=== PATIENT | female | born 2000 | race Caucasian/White ===

== ENCOUNTER → 2025-05-27 | Outpatient (CLI) | payer BC, SELFPAY ==
[2025-05-27 15:21] LABS: Glucose,1 Hour PP 50gm Dose 151 mg/dL (80-140)
== END | disposition home or self-care (01) ==
LOC: SLDO 14:29
PROVIDERS: Referring Provider Physician Assistant Medical; Visit Provider Physician Assistant Medical
DX: Z34.82 Encounter for supervision of other normal pregnancy, second trimester (principal)
CPT/HCPCS: 36415; 82950

== ENCOUNTER → 2025-06-04 | Outpatient (CLI) | payer BC, SELFPAY ==
[2025-06-04 09:36] LABS: Glucose,Fasting Gestational 78 mg/dL (70-120)
[2025-06-04 11:04] LABS: Glucose 1 Hour, Gest 134 mg/dL (50-190)
[2025-06-04 11:40] LABS: Glucose 2 Hour,Gest 142 mg/dL (50-165)
[2025-06-04 12:11] LABS: Glucose 3 Hour, Gest 136 mg/dL (50-145)
== END | disposition home or self-care (01) ==
LOC: COPL 08:19
PROVIDERS: Referring Provider Physician Assistant Medical; Visit Provider Physician Assistant Medical
DX: O99.810 Abnormal glucose complicating pregnancy (principal)
CPT/HCPCS: 36415; 82951; 82952

== ENCOUNTER → 2025-06-27 | Outpatient (CLI) | payer BC, SELFPAY ==
[2025-06-27 16:30] LABS: Basophils # (Auto) 0.0 Thou/mm3 (0.0-0.2); Basophils % (Auto) 0 % (0-2.5); Eosinophils # (Auto) 0.2 Thou/mm3 (0.0-0.5); Eosinophils % (Auto) 2 % (0-10); Hematocrit 36.2 % (36.0-46.0); Hemoglobin 10.8 g/dL (12.0-16.0); Immature Granulocytes Auto 0.15 Thou/mm3 (0.00-0.00); Lymphocytes # (Auto) 2.1 Thou/mm3 (1.0-4.8); Lymphocytes % (Auto) 20 % (10-50); Mean Corpuscular HGB Conc 29.8 g/dl (31.0-37.0); Mean Corpuscular Hemoglobin 29.8 pg (25.0-35.0); Mean Corpuscular Volume 100 fL (80-100); Monocytes # (Auto) 0.6 Thou/mm3 (0.0-0.8); Monocytes % (Auto) 6 % (0-12); Neutrophils # (Auto) 7.3 Thou/mm3 (1.8-7.7); Neutrophils % (Auto) 71 % (37-80); Nucleated Red Blood Cell # 0.00 Thou/mm3 (0.00-0.00); Nucleated Red Blood Cell % 0 /100 WBC (0); Platelet Count 187 Thou/mm3 (140-440); RDW Standard Deviation 50.8 fL (36.4-46.3); Red Blood Count 3.63 Miln/mm3 (4.00-5.20); White Blood Count 10.4 Thou/mm3 (3.6-11.0)
[2025-06-27 17:33] LABS: Syphilis Nonreactive (Nonreactive)
== END | disposition home or self-care (01) ==
LOC: SLDO 14:45
PROVIDERS: PCP Specialist; Referring Provider Specialist; Visit Provider Specialist
DX: Z34.83 Encounter for supervision of other normal pregnancy, third trimester (principal)
CPT/HCPCS: 36415; 85025; 86780

== ENCOUNTER 2025-08-11 10:08 | Inpatient (IN) | payer BC, SELFPAY ==
[2025-08-11] VITALS (14 sets, daily range): BP systolic 98–131; BP diastolic 53–86; PULSE 66–99; RESP 12–100; TEMP 36.4–36.7; O2SAT 96–100; BMI 35.4
--- NOTE | 2025-08-11 11:00 | PD.LDHP ---
Documentation for date of: 08/11/25 OB Labor/Induct. HPI History of Present Illness History of present illness: H and P dictated on the STAT line in [employer] #9: [id number] Meds Home Medications and Allergies Home Medications ?Medication ?Instructions ?Recorded ?Confirmed ?Type No Known Home Medications 10/28/21 10/28/21 History Allergies Allergy/AdvReac Type Severity Reaction Status Date / Time animal dander Allergy Verified 05/27/20 18:56 OB Exam Physical Exam Vital signs: Temp Pulse Resp BP 98.1 F 71 16 119/74 08/11/25 10:16 08/11/25 10:26 08/11/25 10:16 08/11/25 10:26
[2025-08-11 11:06] LABS: Basophils # (Auto) 0.0 Thou/mm3 (0.0-0.2); Basophils % (Auto) 0 % (0-2.5); Eosinophils # (Auto) 0.1 Thou/mm3 (0.0-0.5); Eosinophils % (Auto) 1 % (0-10); Hematocrit 36.9 % (36.0-46.0); Hemoglobin 12.6 g/dL (12.0-16.0); Immature Granulocytes Auto 0.09 Thou/mm3 (0.00-0.00); Lymphocytes # (Auto) 2.2 Thou/mm3 (1.0-4.8); Lymphocytes % (Auto) 17 % (10-50); Mean Corpuscular HGB Conc 34.1 g/dl (31.0-37.0); Mean Corpuscular Hemoglobin 29.9 pg (25.0-35.0); Mean Corpuscular Volume 88 fL (80-100); Monocytes # (Auto) 0.6 Thou/mm3 (0.0-0.8); Monocytes % (Auto) 5 % (0-12); Neutrophils # (Auto) 9.5 Thou/mm3 (1.8-7.7); Neutrophils % (Auto) 76 % (37-80); Nucleated Red Blood Cell # 0.00 Thou/mm3 (0.00-0.00); Nucleated Red Blood Cell % 0 /100 WBC (0); Platelet Count 211 Thou/mm3 (140-440); RDW Standard Deviation 41.5 fL (36.4-46.3); Red Blood Count 4.21 Miln/mm3 (4.00-5.20); White Blood Count 12.5 Thou/mm3 (3.6-11.0)
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
[2025-08-11] MEDS: RINGERS LACTATED 1000 ML 1,000 ML 125 ML IV ×2 (11:38→11:58)
[2025-08-11] MEDS: CITRIC ACID/SODIUM CITR 15 ML UDC (BICITRA) 30 ML PO ×2 (11:56→11:57)
[2025-08-11] MEDS: ceFAZolin/D5W 2 GM IV 2 GM/100 ML BAG IV (11:57)
--- NOTE | 2025-08-11 12:05 | PD.LDDS ---
DS: Providers Provider Date of admission: 08/11/25 10:08 Primary care physician: Physician No Primary/Family Admitting Provider: Darin Dodd MD Attending Provider on Admission: Darin Dodd MD Attending Provider on DC: Darin Dodd MD Discharging Provider: Darin Dodd MD DS: Diagnosis Problem List Completed Was Problem List Reviewed/Reconciled?: Yes Summary/Hosp Course Brief History: H and P dictated on the STAT line in [facility] #9: [id number] Peripartum Data Delivery Method: Low Transverse Procedures: Procedures Operation Date: 08/11/25 12:15 <No data on this case meets the specified criteria> Time Spent with Patient Time attestation: Total time spent providing and/or coordinating discharge services: Exam Vital Signs Temp Pulse Resp BP 98.1 F 71 16 119/74 08/11/25 10:16 08/11/25 10:26 08/11/25 10:16 08/11/25 10:26 Discharge Plan Plan Patient Disposition: HOME (Self Care) Patient condition on transfer: Stable Prescriptions/Referrals Prescriptions/Med Rec: New hydrocodone-acetaminophen 5-325 mg tablet 1 tab PO Q6H MDD 4 PRN (Reason: pain) Qty: 20 0RF ibuprofen 600 mg tablet 600 mg PO Q6H PRN (Reason: pain) Qty: 30 0RF Continued Classic 28 mg iron- 800 mcg tablet 800 tab PO QDAY Patient Comments: TAKE 1 TABLET BY MOUTH EVERY DAY Referrals: No Primary/Family,Physician [Primary Care Provider] Patient/Caregiver Discharge Instructions Discharge Activity: activity as tolerated Other Discharge Activity Instructions:: Follow up office 1 week. Education Materials: C Section Dc Print Language: Azeri Stand Alone Forms: Debby Award Info., Patient Portal Info Letter, Work/Release Restrictions Planned Discharge Date 08/13/25
--- NOTE | 2025-08-11 12:11 | ESOP_ITS ---
Operative Note - DIRECTOR OF FLIGHT OPERATIONS Procedure Date of procedure: 08/11/25 Procedure Performed: Repeat low-transverse section via Pfannenstiel skin incision Indication: Intrauterine at 37 weeks and 0 days Previous delivery Elects repeat delivery Early labor Pre-Op diagnosis: Intrauterine at 37 weeks and 0 days Previous delivery Elects repeat delivery Early labor Post-Op diagnosis: Intrauterine at 37 weeks and 0 days Previous delivery Elects repeat delivery Early labor Endometriosis Anesthesia type: Spinal Procedure description: After proper informed consent was obtained and the patient was made aware of the risks, complications, alternatives and benefits of the proposed procedure she was taken to the operating room where she underwent induction of spinal anesthesia. She was prepped and draped in the usual sterile fashion. A timeout was performed.? A Pfannenstiel skin incision was made with the scalpel and carried through to the underlying layer of fascia with the Bovie. The fascia was nicked in the midline incision and the incision was extended bilaterally with the Bovie. The inferior aspect of the fascial incision was grasped with Oralia clamps elevated and the underlying rectus muscle dissected off with the Bovie. The superior aspect the fascial incision was grasped with Oralia clamps elevated and the underlying rectus muscle dissected off with the Bovie. The rectus muscles were in the midline. The peritoneum was grasped between 2 Cole clamps and entered sharply with the Metzenbaum scissors. The peritoneum was extended superiorly and inferiorly with good visualization of the bladder. The vesicouterine peritoneum was incised transversely and the bladder flap created digitally. A Jaky blade was inserted. A low transverse incision was made in the uterus with a scapel and the incision was extended digitally. The infant's head delivered and the mouth and nose were suctioned with the bulb suction. The shoulder and body delivered atraumatically. The cord was clamped after 30 second delayed cord clamping and the cord was cut.? The male infant was handed off to the waiting Pediatric staff, cord blood was collected for lab testing. The placenta was removed complete and intact. The uterus was exteriorized and cleared of all clots and debris. The uterine incision was closed with #1-0 chromic catgut suture in a running interlocking fashion. A second layer of the same suture was used to imbricate the first layer and obtain excellent hemostasis. The vesicouterine peritoneum was closed with 2-0 chromic catgut suture in a running fashion. The firm uterus was returned to the abdomen. The gutters were cleared of all clots and debris. The peritoneum was closed with 0 chromic catgut suture in running fashion. The rectus muscle was closed with 0 chromic catgut suture. The fascia was closed with 0 Vicryl beginning at each angle and ending in the center in a running fashion. The subcutaneous tissue was irrigated with warmed normal saline solution and found to be hemostatic. The subcutaneous tissue was closed with 2-0 chromic catgut suture in a running fashion. The skin was closed with 4-0 Monocryl. A Dermabond Prineo dressing was applied and a sterile pressure dressing was applied.? She tolerated the procedure well. Counts were correct. I discussed with the patient the nature of her condition, intraoperative findings and expectation for recovery all? questions answered. Specimen: none Estimated blood loss (ml): 600 Findings: Live infant male Apgars 9 and 9 Weight 6 pounds 8 ounces Clear amniotic fluid Placenta removed completely intact Cephalic Ovaries and tubes grossly within normal limits Uterus contained superficial endometriotic implants on the posterior uterosacral ligaments and vesicouterine peritoneum Complications: none Surgical staff Rishi Robertsons ELSIE Figueroa Dr, Surgeon Operation Date: 08/11/25 12:15 <No data on this case meets the specified criteria> Diagnosis Discharge Diagnosis (1) delivery delivered: Status: Acute Problem List Completed Was Problem List Reviewed/Reconciled?: Yes
[2025-08-11 12:50] LABS: Syphilis Nonreactive (Nonreactive)
--- NOTE | 2025-08-11 13:15 | PC.NURSE ---
L/R pitocin IV bag more than 700ml in bag when entering room 466
[2025-08-11 19:17] LABS: Basophils # (Auto) 0.0 Thou/mm3 (0.0-0.2); Basophils % (Auto) 0 % (0-2.5); Eosinophils # (Auto) 0.0 Thou/mm3 (0.0-0.5); Eosinophils % (Auto) 0 % (0-10); Hematocrit 32.5 % (36.0-46.0); Hemoglobin 11.1 g/dL (12.0-16.0); Immature Granulocytes Auto 0.13 Thou/mm3 (0.00-0.00); Lymphocytes # (Auto) 0.8 Thou/mm3 (1.0-4.8); Lymphocytes % (Auto) 5 % (10-50); Mean Corpuscular HGB Conc 34.2 g/dl (31.0-37.0); Mean Corpuscular Hemoglobin 29.8 pg (25.0-35.0); Mean Corpuscular Volume 87 fL (80-100); Monocytes # (Auto) 0.4 Thou/mm3 (0.0-0.8); Monocytes % (Auto) 2 % (0-12); Neutrophils # (Auto) 16.8 Thou/mm3 (1.8-7.7); Neutrophils % (Auto) 92 % (37-80); Nucleated Red Blood Cell # 0.00 Thou/mm3 (0.00-0.00); Nucleated Red Blood Cell % 0 /100 WBC (0); Platelet Count 178 Thou/mm3 (140-440); RDW Standard Deviation 40.7 fL (36.4-46.3); Red Blood Count 3.73 Miln/mm3 (4.00-5.20); White Blood Count 18.1 Thou/mm3 (3.6-11.0)
[2025-08-11] MEDS: OXYTOCIN in NS 20 units 20 UNIT/1,000 ML BAG 125 UNIT IV (20:25)
[2025-08-12] MEDS: KETOROLAC INJ 30 MG/ML VIAL IVP (00:04)
[2025-08-12 00:06] VITALS: BP 95/56; PULSE 76; RESP 20; TEMP 36.9; O2SAT 96
[2025-08-12] MEDS: SIMETHICONE 80 MG CHEW PO ×2 (01:19→20:52)
[2025-08-12 03:35] VITALS: BP 101/60; PULSE 65; RESP 16; TEMP 36.7; O2SAT 95
[2025-08-12 07:07] VITALS: BP 96/60; PULSE 71; RESP 16; TEMP 36.7; O2SAT 97
[2025-08-12] MEDS: ENOXAPARIN SOD INJ 40 MG/0.4 ML SYRINGE SC (08:13)
[2025-08-12] MEDS: DOCUSATE SOD 100 MG CAPSULE PO (08:13)
--- NOTE | 2025-08-12 08:48 | PD.LDDELS ---
Data (Anderson) Data Hx Section: Yes : 2 Term: 1 : 0 Livin Abortions: Spontaneous & Theraputic: 0 Delivery Data (Anderson) Labor Data Induction/Augmentation Agent: None ROM date: 08/11/25 ROM time: 12:38 Amniotic fluid description: Clear Delivery Data EDC: 09/01/25 EDC calculated by:: LMP/early US confirmation [place] delivery date: 08/11/25 [place] delivery time: 12:39 Gestational age (weeks): 37 Gestational age (days): 0 Placenta delivery date: 08/11/25 Placenta delivery time: 12:39 Delivered by: Darin Dodd Delivery nurse: Wong Preston RN [place] nurse: Jayden SIMON RN Sock Lining Examiner at delivery: No Support person(s) at delivery: fob Delivery Method Delivery method: Low Transverse Presentation: Vertex position: OA Anesthesia Type Anesthesia Type: None Anesthesia type: Spinal Placenta Placenta delivery description: Manual Removal Cord blood sent to lab: Yes cord blood collection: Cord Blood Type Episiotomy Episiotomy description: None EBL Estimated blood loss (ml): 600 Umbilical Cord cord description: 3 Vessels Additional Procedures None Complications Complications: None Data (Anderson) [place] Data order: 1 [place]'s gender: Male Identification band number: [id number] weight (gms): 6 lb 7.705 oz Weight (pounds): 6 lbs and 7.7 ozs [place] length: 19.25 in 1 minute: 9 5 minutes: 9
--- NOTE | 2025-08-12 08:59 | ESPR_ITS ---
RE: ДМИТРИЙ GONZALEZ : 2000 DATE OF SERVICE: 08/12/2025 Postoperative day number 1. Patient denies any problem or complaints. She is voiding, she is ambulating, she is tolerating diet, she is passing flatus. She denies any excessive vaginal bleeding. She denies any dizziness or lightheadedness. She denies any chest pain, palpitation, shortness of breath or lower extremity pain. OBJECTIVE: Blood pressure 96/60, heart rate 71, respiration 16, temperature is 98.0. Pulse ox is 97% on room air. Lungs clear to auscultation bilaterally. Heart regular rate and rhythm. Abdomen: Dressing dry and intact, fundus is firm. Extremities: Nontender. Hemoglobin pre-delivery is 12.6, post delivery is 11.1. ASSESSMENT AND PLAN: Postoperative day number 1 status post delivery. Plan: Remove dressing, discontinue IV, support, encourage ambulation, possible discharge home tomorrow. DT: 08:43:53 TT: 08:59:00 Ref: [id number] - TID: [id number]
[2025-08-12 11:27] VITALS: BP 99/61; PULSE 74; RESP 16; TEMP 36.5; O2SAT 98
[2025-08-12] MEDS: IBUPROFEN TAB 400 MG TABLET 800 MG PO ×2 (11:32→20:44)
[2025-08-12 15:00] VITALS: BP 111/65; PULSE 79; RESP 16; TEMP 37.1; O2SAT 96
[2025-08-12] MEDS: ACETAMINOPHEN 325 MG TABLET 650 MG PO (18:10)
[2025-08-12 19:45] VITALS: BP 106/66; PULSE 73; RESP 20; TEMP 36.6; O2SAT 98
[2025-08-13] MEDS: SIMETHICONE 80 MG CHEW PO (04:41)
[2025-08-13] MEDS: HYDROcodone/APAP 5/325 TABLET 1 TAB PO ×2 (04:42→11:41)
--- NOTE | 2025-08-13 04:45 | ESPR_ITS ---
RE: ДМТИРИЙ GONZALEZ : 2000 DATE OF SERVICE: 08/13/2025 SUBJECTIVE: Post-op day #2, patient denies any problem or complaint. She is voiding. She is ambulating. She is tolerating regular diet. She is passing flatus. She denies any excessive vaginal bleeding. She denies any dizziness or lightheadedness. She denies any chest pain, palpitations, shortness of breath, or lower extremity pain. OBJECTIVE: VITAL SIGNS: Blood pressure 106/66, heart rate 73, respirations 20. Temperature is 97.8. Pulse ox is 98% on room air. LUNGS: Clear to auscultation bilaterally. HEART: Regular rate and rhythm. ABDOMEN: Incision clear and intact. Fundus is firm. EXTREMITIES: Nontender. ASSESSMENT AND PLAN: Post-op day #2 status post delivery. Plan discharge home. Discharge instructions given. Follow up in the office in 1 week. DT: 04:28:37 TT: 04:45:00 Ref: [id number] - TID: [id number]
[2025-08-13 04:56] VITALS: BP 131/78; PULSE 76; RESP 20; TEMP 36.7; O2SAT 99
[2025-08-13] MEDS: DOCUSATE SOD 100 MG CAPSULE PO (08:54)
[2025-08-13 09:00] VITALS: BP 109/69; PULSE 66; RESP 18; TEMP 36.4; O2SAT 99
== END 2025-08-13 16:15 | disposition home or self-care (01) | DRG 788 ==
LOC: S4NX 12:49 → S4SX 12:49
PROVIDERS: Admitting Provider Specialist; Visit Provider Specialist
PROC: 10D00Z1 Extraction of Products of Conception, Low, Open Approach (ICD-10-PCS; CPT 59514; principal; 2025-08-11 12:00)
DX: O34.211 Maternal care for low transverse scar from previous cesarean delivery (principal); O16.4 Unspecified maternal hypertension, complicating childbirth; Z37.0 Single live birth; Z3A.37 37 weeks gestation of pregnancy; Z91.410 Personal history of adult physical and sexual abuse
CPT/HCPCS: 36415; 59025; 85025; 86780; 86850; 86900; 86901; A4217; A4314; A4649; J0689; J1100; J1650; J1885; J2274; J2371; J2405; J2590; J3010; J7120; A9270; J2270